=== PATIENT | female | born 1950 | race African-American/Black ===

== ENCOUNTER 2021-10-24 10:35 | Inpatient (IN) | payer MEDICARE ==
[~2021-10-24] VITALS: Ht 154.9 cm; Wt 5.0 kg
[~2021-10-24 10:35] MED LIST: IV RINGERS,LACTATED 1000ML 1,000 ML IV SCH; PROCHLORPERAZINE 10 MG/2 ML VIAL. IVP PRN; ceFAZolin SODIUM IV Push 1 GM VIAL. IVP PRN; fentaNYL PF VIAL 100 MCG/2 ML VIAL IVP PRN
[2021-10-24] MEDS ORDERED: INSULIN LISPRO 100 UNIT/ML 3ML VIAL for OP,RR ONLY. SQ PRN (11:00)
[2021-10-24] MEDS ORDERED: LISI5TAB15 PO (11:13)
[2021-10-24] MEDS ORDERED: METF500T16 PO (11:13)
[2021-10-24] MEDS ORDERED: LOVA20TA2 PO (11:13)
[2021-10-24 11:15] VITALS: BP 120/58
[2021-10-24] MEDS ORDERED: PROPOFOL 10 MG/ML (20ML) VIAL. IV ONE (12:25)
[2021-10-24] MEDS ORDERED: DEXAMETHASONE SOD PHOS 4 MG/ML VIAL ONE (12:25)
[2021-10-24] MEDS ORDERED: ONDANSETRON PF 4 MG/2 ML VIAL. ONE (12:26)
[2021-10-24] MEDS ORDERED: fentaNYL PF VIAL 100 MCG/2 ML VIAL ONE (12:26)
[2021-10-24] MEDS ORDERED: BUPIVACAINE-EPI 0.5% 30 ML VIAL KIT. ONE (12:46)
--- NOTE | 2021-10-24 14:29 | PDOC4 ---
Operative Note Operative Note Operative Note: Preoperative Diagnosis: Ventral hernia Postoperative Diagnosis: Same Procedure: Ventral hernia repair with mesh Surgeon: Erik Wagon Driver: Avel Jasmine MS 4 Anesthesia: General EBL: 30 mL Specimen: None Drains: None Complications: None Indication: The patient is a 71-year-old female who was referred with a ventral hernia. She was offered surgical repair. The risks of surgery were discussed which include bleeding, infection, recurrence, pain, anesthetic risk, potential need for additional surgery procedure. She understands and would like to proceed. Description: The patient was taken the operating room and placed supine on the operating table. General anesthesia was performed. The lower abdomen is prepped with ChloraPrep and draped in a standard surgical manner. A vertical incision was made in the lower abdomen extending from the symphysis superiorly. Cautery dissection was carried down to the fascia. There was a marked amount of scar tissue from prior surgeries. The fascial defect was readily identified. There were several adhesions involving small intestine which were cleared away from the hernia defect. A large Ventralex ST was then placed in a subfascial location. The mesh was sutured to the intra-abdominal wall using 0 Prolene placed at the 12, 3, 6, 9:00 positions. The fascial edges were closed over the mesh with 0 Prolene. The deep subcutaneous tissue was closed with 2-0 Vicryl. The more superficial subcutaneous tissue was closed with 3-0 Vicryl. Skin was closed with 4 Monocryl. Steri-Strips and a sterile dressing were applied. The patient tolerated the procedure well and was sent to the recovery room in stable condition. At the end of the case all counts were correct ANTONIETA CANALES MD Oct 24, 2021 14:29
[2021-10-24] MEDS ORDERED: 0.9 % SODIUM CHLORIDE 10 ML DISP.SYRIN. IV PRN (14:30)
[2021-10-24] MEDS ORDERED: NALOXONE 0.4 MG/ML VIAL. IV PRN (14:30)
[2021-10-24] MEDS ORDERED: ONDANSETRON PF 4 MG/2 ML VIAL. IVP PRN (14:30)
[2021-10-24] MEDS ORDERED: MORPHINE SULFATE 2 MG/ML INJ. ONE (15:01)
[2021-10-24] MEDS: fentaNYL PF VIAL 100 MCG/2 ML VIAL IVP PRN ×2 (15:04→15:14)
[2021-10-24] MEDS: MORPHINE SULFATE 2 MG/ML INJ. IVP PRN ×2 (15:04→15:15)
[2021-10-24] MEDS ORDERED: HYDROmorphone 2 MG/ML INJ. ONE (15:32)
[2021-10-24] MEDS: HYDROmorphone 2 MG/ML INJ. IVP PRN ×4 (15:34→18:15)
[2021-10-24] MEDS: metFORMIN 500 MG TABLET PO SCH (17:00)
[2021-10-24] MEDS: IV NORMAL SALINE 1000ML BAG 1,000 ML IV SCH (17:30)
[2021-10-24] MEDS: IV 1/2 NORMAL SALINE 1,000 ML IV SCH (17:43)
--- NOTE | 2021-10-24 17:44 | NUR ---
NS IVF not administered because 0.45%NS at 80cc/hr infusing per order until patient is tolerating PO.
--- NOTE | 2021-10-24 18:09 | NUR ---
Metformin not administered because patient is only tolerating sips of clear liquids at this time.
[2021-10-24 19:00] VITALS: BP 117/55
[2021-10-24] MEDS: HYDROmorphone 2 MG/ML INJ. IV PRN (20:31)
[2021-10-24] MEDS: ATORVASTATIN CALCIUM 10 MG TABLET. PO SCH (21:00)
[2021-10-24 23:00] VITALS: BP 105/51
[2021-10-25] MEDS: HYDROmorphone 2 MG/ML INJ. IV PRN (00:44)
[2021-10-25 03:20] VITALS: BP 106/52
[2021-10-25] MEDS: IV 1/2 NORMAL SALINE 1,000 ML IV SCH ×2 (04:24→15:30)
[2021-10-25 07:00] VITALS: BP 98/46
[2021-10-25] MEDS: metFORMIN 500 MG TABLET PO SCH ×2 (08:48→17:00)
[2021-10-25] MEDS: HYDROcodone/APAP 5/325MG 1 TAB TABLET PO PRN ×3 (08:48→19:46)
[2021-10-25] MEDS: LISINOPRIL 5 MG TABLET. PO SCH (08:49)
--- NOTE | 2021-10-25 09:49 | PDOC ---
SURGICAL PROGRESS NOTE DATE: 10/25/21 TIME: 09:48 Subjective sore has only walked to bathroom clear liquids for breakfast Vital Signs Vital Signs Date Time Temp Pulse Resp B/P (MAP) Pulse Ox O2 Delivery O2 Flow Rate FiO2 10/25/21 08:49 72 98/46 10/25/21 08:48 18 Nasal Cannula 2.0 10/25/21 07:00 98.4 96 98.4 I&O Intake and Output 10/25/21 07:00 Intake Total 2200 ml Output Total 30 ml Balance 2170 ml IV Total 2200 ml Output Urine Total 0 ml Estimated Blood Loss 30 ml # Voids 2 General: Alert, Oriented X3, Cooperative Abdomen: Soft, Other (binder in place) Labs Laboratory Tests Test 10/24/21 10:40 10/24/21 11:15 10/24/21 15:12 10/24/21 16:52 POC SARS CoV-2 Antigen Negative (NEGATIVE) Glucose (Fingerstick) 77 mg/dL (70-99) 89 mg/dL (70-99) 111 mg/dL (70-99) Test 10/25/21 08:48 Glucose (Fingerstick) 78 mg/dL (70-99) Laboratory Tests Test 10/24/21 10:40 10/24/21 11:15 10/24/21 15:12 10/24/21 16:52 POC SARS CoV-2 Antigen Negative (NEGATIVE) Glucose (Fingerstick) 77 mg/dL (70-99) 89 mg/dL (70-99) 111 mg/dL (70-99) Test 10/25/21 08:48 Glucose (Fingerstick) 78 mg/dL (70-99) Assessment/Plan s/p VIH ambulate, increase diet home likely in AM Justicifation of Admission Dx: Justifications for Admission: Justification of Admission Dx: Yes Comments: ventral hernia REINA PRITCHARD INPATIENT NURSING AIDE Oct 25, 2021 09:49
[2021-10-25 10:34] VITALS: BP 114/54
--- NOTE | 2021-10-25 13:45 | NUR ---
SS following for discharge planning. SS reviewed pt chart and discussed with pt RN. Pt is from home with spouse and is currently on room air. COVID19 negative. Pt had surgery on 10/24/2021. PO diet. Discharge plan is currently to home when medically ready for discharge. SS will continue to follow for discharge planning.
[2021-10-25] MEDS: IV NORMAL SALINE 1000ML BAG 1,000 ML IV SCH (14:30)
[2021-10-25 14:58] VITALS: BP 108/51
[2021-10-25 19:00] VITALS: BP 106/50
[2021-10-25] MEDS: ATORVASTATIN CALCIUM 10 MG TABLET. PO SCH (20:47)
[2021-10-25 23:00] VITALS: BP 109/49
[2021-10-26 03:00] VITALS: BP 109/53
[2021-10-26 07:00] VITALS: BP 120/54
[2021-10-26] MEDS: metFORMIN 500 MG TABLET PO SCH (08:04)
[2021-10-26] MEDS: LISINOPRIL 5 MG TABLET. PO SCH (08:04)
[2021-10-26] MEDS: HYDROcodone/APAP 5/325MG 1 TAB TABLET PO PRN ×2 (08:05→12:05)
[2021-10-26 11:00] VITALS: BP 88/45
[2021-10-26] MEDS ORDERED: HYDR-2761 PO (11:41)
[2021-10-26] MEDS ORDERED: DOCU-109 PO (11:41)
--- NOTE | 2021-10-26 11:43 | DISCH ---
DISCHARGE INSTRUCTIONS Condition on Discharge Condition on Discharge: Stable Activity After Discharge Activity Instructions for Disc: Other, see below Other activity instructions: wear binder Lifting Instructions after Dis: No heavy lifting, No pulling or pushing Driving Instructions after Dis: Do not drive today Diet after Discharge Diet after Discharge: Regular Wound Incision Care Wound/Incision Care: May get incision wet Other wound/incision instructi: wear binder Contacting the after DC Call your doctor for: Concerns you may have Follow-Up Follow up with: Dr Valencia 2 weeks, call to schedule [phone] REINA PRITCHARD ASSISTANT PROFESSOR SCULPTURE Oct 26, 2021 11:43
--- NOTE | 2021-10-26 13:45 | NUR ---
Discharge Note: HERBIE SHANNON Discharge instructions and discharge home medications reviewed with Patient and a copy given. All questions have been answered and understanding verbalized. The following instructions and handouts were given: f/u with Dr. Valencia within two weeks. Discontinued lines and drains: Peripheral IV intact. Patient discharged to Home or Self Care with Family Member via Ambulated.
--- NOTE | 2021-11-05 10:14 | PDOC3 ---
Discharge Summary Visit Information Date of Admission: Oct 24, 2021 Date of Discharge: Oct 26, 2021 Admitting Diagnosis: Ventral hernia Final Diagnosis ventral hernia Brief Hospital Course Allergies Allergies Coded Allergies Type Severity Reaction Last Updated Verified No Known Drug Allergies 10/24/21 No Brief Hospital Course Ms. Alvarado is a 71 old female who underwent Ventral hernia repair with mesh. postoperatively tolerating diet, ambulating, pain managed and ready for discharge home Discharge Information Condition at Discharge: Stable Follow Up: Weeks (2) Disposition/Orders: D/C to Home Scheduled Docusate Sodium (Colace) 100 Mg Capsule, 100 MG PO BID for constipation, #60 Prescribed by: Reina Mireles on 10/26/21 1141 Lisinopril (Lisinopril) 5 Mg Tablet, 1 TAB PO DAILY for , #30 Ref 5 (Reported) Entered as Reported by: Pippa Navarro on 10/24/21 111 Last Taken: Unknown Dose on 10/23/21 1100 Last Action: Continued on 10/24/211432 by ANTONIETA CANALES Lovastatin (Lovastatin) 20 Mg Tablet, 10 MG PO HS for , (Reported) Entered as Reported by: Pippa Navarro on 10/24/21 1113 Last Action: Converted on 10/24/211432 by ANTONIETA CANALES Metformin Hcl (Metformin Hcl) 500 Mg Tablet, 500 MG PO BIDWMEALS for ANTI- DIABETIC, Ref 0 (Reported) Entered as Reported by: Pippa Navarro on 10/24/21 111 Last Action: Continued on 10/24/211432 by ANTONIETA CANALES Scheduled PRN Hydrocodone Bit/Acetaminophen (Hydrocodone-Apap 5-325 ) 1 Tab Tablet, 1 TAB PO PRN Q4HRS PRN for MILD PAIN 1-3, #20 Ref 0 Prescribed by: Reina Mireles on 10/26/21 1141 Justicifation of Admission Dx: Justifications for Admission: Justification of Admission Dx: Yes REINA MIRELES MAIL SUPERINTENDENT Nov 05, 2021 10:14
== END 2021-10-26 13:45 | disposition home or self-care (01) | DRG 355 ==
LOC: SURG 10:35 → 2 NORTH 14:29 → 5 NORTH 16:30 → OBSVTOIN 10-25 11:30
PROVIDERS: ADMIT Surgery; ATTEND Surgery
PROC: 0WUF0JZ Supplement Abdominal Wall with Synthetic Substitute, Open Approach (ICD-10-PCS; principal; 2021-10-25)
DX: K43.9 Ventral hernia without obstruction or gangrene (principal); Z20.822 Contact with and (suspected) exposure to COVID-19; Z79.899 Other long term (current) drug therapy
CPT/HCPCS: 82962; A4364; A4452; A4930; C1781; G0378; G0379; J0690; J1100; J1170; J2270; J2405; J2704; J3010; J3490